=== PATIENT | female | born 1990 | race Caucasian/White ===

== ENCOUNTER 2017-06-28 12:28 | Emergency (ER) | payer OTHER ==
[~2017-06-28] VITALS: Ht 152.4 cm; Wt 63.5 kg
[~2017-06-28 12:28] MED LIST: ALBU90OI INH; AMOX250 PO; ARIP10; ATOM40; CEPH500 PO; CYCL10 PO; HYDACE5 PO; Norco 5-325 Ta1 EACH PO; PROM25 PO; Prilosec20 MG PO; Xanax0.5 MG PO; Zofran Odt4 MG SL
== END 2017-06-28 14:25 | disposition home or self-care (01) ==
LOC: ER 12:28
DX: S61.215A Laceration without foreign body of left ring finger without damage to nail, initial encounter (principal); Z88.8 Allergy status to other drugs, medicaments and biological substances; Z88.5 Allergy status to narcotic agent; F17.200 Nicotine dependence, unspecified, uncomplicated; W26.0XXA Contact with knife, initial encounter
CPT/HCPCS: 12001; 99283

== ENCOUNTER 2017-12-23 08:23 | Emergency (ER) | payer OTHER, BC ==
[~2017-12-23] VITALS: Ht 152.4 cm; Wt 52.2 kg
[2017-12-23] MEDS ORDERED: CEPH500 PO (09:38)
== END 2017-12-23 10:00 | disposition home or self-care (01) ==
LOC: ER 08:23
DX: S62.524A Nondisplaced fracture of distal phalanx of right thumb, initial encounter for closed fracture (principal); S60.111A Contusion of right thumb with damage to nail, initial encounter; F17.200 Nicotine dependence, unspecified, uncomplicated; Z88.5 Allergy status to narcotic agent; W23.0XXA Caught, crushed, jammed, or pinched between moving objects, initial encounter
CPT/HCPCS: 11740; 29130; 73140; 99283-25

== ENCOUNTER 2018-10-14 23:07 | Emergency (ER) | payer OTHER ==
[~2018-10-14] VITALS: Ht 152.4 cm; Wt 57.6 kg
[2018-10-15] MEDS ORDERED: Augmentin 875-1 EACH PO (04:09)
== END 2018-10-15 04:25 | disposition home or self-care (01) ==
LOC: ER 23:07
DX: K61.0 Anal abscess (principal); Z88.5 Allergy status to narcotic agent; F17.210 Nicotine dependence, cigarettes, uncomplicated
CPT/HCPCS: 46050; 72193; 96374-59; 96375-59; 99283-25; A9270; J2060; J2405; Q9967

== ENCOUNTER 2018-10-16 09:46 | Observation (INO) | payer OTHER ==
[~2018-10-16] VITALS: Ht 152.4 cm; Wt 57.6 kg
[~2018-10-16 09:46] MED LIST changes: +Augmentin 875-1 EACH PO
[2018-10-16 10:35] LABS: BASOPHILS ABSOLUTE AUTO 0.04 K/mm3 (0.00-0.23); BASOPHILS PERCENT AUTO 0 % (0-2); EOSINOPHILS ABSOLUTE AUTO 0.28 K/mm3 (0.00-0.68); EOSINOPHILS PERCENT AUTO 2 % (0-6); Hematocrit 42.2 % (33.0-51.0); IMMATURE GRAN ABSOLUTE AUTO 0.05 K/mm3 (0.00-0.10); IMMATURE GRAN PERCENT AUTO 0 % (0-1); LYMPHOCYTES ABSOLUTE AUTO 2.73 K/mm3 (0.84-5.20); LYMPHOCYTES PERCENT AUTO 18 % (21-46); MONOCYTES ABSOLUTE AUTO 1.22 K/mm3 (0.16-1.47); MONOCYTES PERCENT AUTO 8 % (4-13); Mean Corpuscular HGB 28.6 pg (26.0-34.0); Mean Corpuscular HGB Conc 33.2 g/dL (31.5-36.5); Mean Corpuscular Volume 86 fL (80-100); Mean Platelet Volume 10.4 fL (9.1-12.4); NEUTROPHILS ABSOLUTE AUTO 10.91 K/mm3 (1.96-9.15); NEUTROPHILS PERCENT AUTO 72 % (41-73); Platelet Count 350 K/mm3 (150-400); RDW Coefficient Variation 12.5 % (11.7-14.2); RDW Standard Deviation 39.6 fL (35.1-46.3); Red Blood Cell Count 4.89 M/mm3 (3.80-5.20); White Blood Cell Count 15.23 K/mm3 (4.00-11.30)
[2018-10-16 10:56] LABS: Anion Gap 9 mmol/L (6-16); Blood Urea Nitrogen 8 mg/dL (8-24); Bun/Creatinine Ratio 11.5 (12.0-20.0); CO2, Blood 23 mmol/L (21-32); Calcium, Blood 9.8 mg/dL (8.5-10.1); Chloride, Blood 106 mmol/L (98-108); Glomerular Filtration Rate >60 (60-); Glucose, Blood 100 mg/dL (70-99); Potassium, Blood 3.5 mmol/L (3.5-5.5); Sodium, Blood 138 mmol/L (136-145)
--- NOTE | 2018-10-16 14:46 | NUR ---
PATIENT ARRIVED FROM ER AND WAS RE-ROUTED TO DAY SURGERY PER DR MILLER
--- NOTE | 2018-10-16 15:13 | NUR ---
"DAY SURGERY RN | PATIENT TO OR"
--- NOTE | 2018-10-16 15:33 | NUR ---
10/16/18 1533 Lisa Vera PT ON SCHEDULED ANTIBIOTICS
--- NOTE | 2018-10-16 16:48 | NUR ---
TOLERATES PUDDING AND WATER . GIVEN ONE HALF PAIN PILL AT PT REQUEST . RATES PAIN 3/10 AND DENIES NAUSEA
--- NOTE | 2018-10-16 17:34 | NUR ---
DISCHARGED AT THIS TIME WITH ALL BELONINGS AND DISCHARGE INSTRUCTIONS, AFTER GOING OVER THEM WITH PATIENT AND FAMILY MEMBERS AND ANSWERING ALL QUESTIONS.
== END 2018-10-16 18:44 | disposition home or self-care (01) ==
LOC: ER 09:46 → ERHOLD 09:47 → MEDS 14:18
PROVIDERS: Emergency Medicine; ADMIT Surgery
PROC: 0D9P0ZZ Drainage of Rectum, Open Approach (ICD-10-PCS; principal; 2018-10-16 14:15)
DX: K61.1 Rectal abscess (principal); F17.200 Nicotine dependence, unspecified, uncomplicated; Z88.5 Allergy status to narcotic agent
CPT/HCPCS: 36415; 80048; 85025; 96365; 96375; 99284-25; G0378; J1100; J1170; J1885; J2250; J2405; J2704; J3010; J7030; J7120

== ENCOUNTER 2019-01-29 17:10 | Emergency (ER) | payer OTHER ==
[~2019-01-29] VITALS: Ht 162.6 cm; Wt 59.0 kg
[2019-01-29] MEDS ORDERED: CEPH500 PO (18:29)
== END 2019-01-29 18:39 | disposition home or self-care (01) ==
LOC: ER 17:10
DX: L03.011 Cellulitis of right finger (principal); Z88.5 Allergy status to narcotic agent; F17.210 Nicotine dependence, cigarettes, uncomplicated
CPT/HCPCS: 10060; 99283-25

== ENCOUNTER 2019-02-19 13:35 | Emergency (ER) | payer OTHER ==
[~2019-02-19] VITALS: Ht 152.4 cm; Wt 56.7 kg
[2019-02-19] MEDS ORDERED: Percocet 5-3251 EACH PO (15:20)
[2019-02-19] MEDS ORDERED: PROBIOTIC1 EAC1 PO (15:20)
[2019-02-19] MEDS ORDERED: Vibramycin100 MG PO (15:20)
== END 2019-02-19 15:30 | disposition home or self-care (01) ==
LOC: ER 13:35
DX: L02.415 Cutaneous abscess of right lower limb (principal); L03.115 Cellulitis of right lower limb; Z88.5 Allergy status to narcotic agent; F17.200 Nicotine dependence, unspecified, uncomplicated
CPT/HCPCS: 10060; 99282-25

== ENCOUNTER 2019-04-05 16:30 | Emergency (ER) | payer OTHER ==
[~2019-04-05] VITALS: Ht 152.4 cm; Wt 56.7 kg
[~2019-04-05 16:30] MED LIST changes: +PROBIOTIC1 EAC1 PO; +Percocet 5-3251 EACH PO; +Vibramycin100 MG PO
[2019-04-05 17:04] LABS: BASOPHILS ABSOLUTE AUTO 0.02 K/mm3 (0.00-0.23); BASOPHILS PERCENT AUTO 0 % (0-2); EOSINOPHILS ABSOLUTE AUTO 0.08 K/mm3 (0.00-0.68); EOSINOPHILS PERCENT AUTO 1 % (0-6); Hematocrit 42.4 % (33.0-51.0); Hemoglobin 13.8 g/dL (11.5-16.0); IMMATURE GRAN ABSOLUTE AUTO 0.01 K/mm3 (0.00-0.10); IMMATURE GRAN PERCENT AUTO 0 % (0-1); LYMPHOCYTES ABSOLUTE AUTO 1.46 K/mm3 (0.84-5.20); LYMPHOCYTES PERCENT AUTO 25 % (21-46); MONOCYTES ABSOLUTE AUTO 0.72 K/mm3 (0.16-1.47); MONOCYTES PERCENT AUTO 12 % (4-13); Mean Corpuscular HGB 28.2 pg (26.0-34.0); Mean Corpuscular HGB Conc 32.5 g/dL (31.5-36.5); Mean Corpuscular Volume 87 fL (80-100); Mean Platelet Volume 10.4 fL (9.1-12.4); NEUTROPHILS ABSOLUTE AUTO 3.54 K/mm3 (1.96-9.15); NEUTROPHILS PERCENT AUTO 61 % (41-73); Platelet Count 271 K/mm3 (150-400); RDW Coefficient Variation 12.4 % (11.7-14.2); RDW Standard Deviation 39.4 fL (35.1-46.3); White Blood Cell Count 5.83 K/mm3 (4.00-11.30)
[2019-04-05 17:37] LABS: Alanine Aminotransfer (ALT/SGP 22 U/L (12-78); Albumin, Blood 4.3 g/dL (3.4-5.0); Albumin/Globulin Ratio 1.1 (0.8-1.8); Alk Phos 67 U/L (50-136); Anion Gap 6 mmol/L (6-16); Aspartate Aminotrans (AST/SGOT 16 U/L (12-37); Bilirubin, Total 0.5 mg/dL (0.1-1.0); Blood Urea Nitrogen 9 mg/dL (8-24); Bun/Creatinine Ratio 13.6 (12.0-20.0); CO2, Blood 25 mmol/L (21-32); Calcium, Blood 9.2 mg/dL (8.5-10.1); Chloride, Blood 105 mmol/L (98-108); Creatinine, Blood 0.66 mg/dL (0.40-1.00); Globulin, Blood 3.8 g/dL (2.2-4.0); Glomerular Filtration Rate >60 (60-); Glucose, Blood 90 mg/dL (70-99); Potassium, Blood 3.3 mmol/L (3.5-5.5); Sodium, Blood 136 mmol/L (136-145); Total Protein, Blood 8.1 g/dL (6.4-8.2)
[2019-04-05 17:47] LABS: Source, Urine Clean Catch
[2019-04-05 17:50] LABS: Blood, Urine 2+ (Neg); Glucose Qualitative, Urine Neg (Neg); Ketones, Urine 4+ (Neg); Leukocyte Esterase, Urine 1+ (Neg); Nitrite, Urine Neg (Neg); Protein, Urine 1+ (Neg); Specific Gravity, Urine 1.025 (1.003-1.022); Urobilinogen, Urine 2+ (Normal)
[2019-04-05 17:58] LABS: Appearance, Urine Hazy (Clear); Bilirubin, Urine 1+ (Neg); Color, Urine Yellow (P-Yellow)
[2019-04-05 18:00] LABS: Red Blood Cells, Urine 0-2 /hpf (0-2); White Blood Cells, Urine 0-2 /hpf (0-5)
[2019-04-05 18:01] LABS: Bacteria Mod /hpf; Mucus Light (0-Heavy); Squamous Epithelial Cells Few /hpf (Few)
[2019-04-05] MEDS ORDERED: DICL75ER PO (18:57)
[2019-04-05] MEDS ORDERED: CEPH500 PO (18:57)
[2019-04-05] MEDS ORDERED: ONDA4ODT MM (18:57)
[2019-04-05] MEDS ORDERED: CYCL10 PO (19:42)
== END 2019-04-06 19:47 | disposition home or self-care (01) ==
LOC: ER 16:30
PROVIDERS: Emergency Medicine
DX: N39.0 Urinary tract infection, site not specified (principal); F17.200 Nicotine dependence, unspecified, uncomplicated; Z88.5 Allergy status to narcotic agent
CPT/HCPCS: 36415; 72040; 80053; 81001; 81025; 83690; 85025; 87086; 99284-25; J1885

== ENCOUNTER 2020-03-27 17:06 | Emergency (ER) | payer OTHER ==
[~2020-03-27] VITALS: Ht 152.4 cm; Wt 54.4 kg
[~2020-03-27 17:06] MED LIST changes: +DICL75ER PO; +ONDA4ODT MM
[2020-03-27 17:32] LABS: BASOPHILS ABSOLUTE AUTO 0.03 K/mm3 (0.00-0.23); BASOPHILS PERCENT AUTO 0 % (0-2); EOSINOPHILS ABSOLUTE AUTO 0.26 K/mm3 (0.00-0.68); EOSINOPHILS PERCENT AUTO 3 % (0-6); Hematocrit 44.2 % (33.0-51.0); Hemoglobin 14.1 g/dL (11.5-16.0); IMMATURE GRAN ABSOLUTE AUTO 0.02 K/mm3 (0.00-0.10); IMMATURE GRAN PERCENT AUTO 0 % (0-1); LYMPHOCYTES ABSOLUTE AUTO 1.91 K/mm3 (0.84-5.20); LYMPHOCYTES PERCENT AUTO 21 % (21-46); MONOCYTES ABSOLUTE AUTO 0.51 K/mm3 (0.16-1.47); MONOCYTES PERCENT AUTO 6 % (4-13); Mean Corpuscular HGB 27.9 pg (26.0-34.0); Mean Corpuscular HGB Conc 31.9 g/dL (31.5-36.5); Mean Corpuscular Volume 88 fL (80-100); Mean Platelet Volume 10.1 fL (9.1-12.4); NEUTROPHILS ABSOLUTE AUTO 6.45 K/mm3 (1.96-9.15); NEUTROPHILS PERCENT AUTO 70 % (41-73); Platelet Count 301 K/mm3 (150-400); RDW Coefficient Variation 11.9 % (11.7-14.2); RDW Standard Deviation 38.5 fL (35.1-46.3); Red Blood Cell Count 5.05 M/mm3 (3.80-5.20); White Blood Cell Count 9.18 K/mm3 (4.00-11.30)
[2020-03-27 17:51] LABS: Alanine Aminotransfer (ALT/SGP 18 U/L (12-78); Albumin, Blood 4.6 g/dL (3.4-5.0); Albumin/Globulin Ratio 1.3 (0.8-1.8); Alk Phos 79 U/L (50-136); Anion Gap 9 mmol/L (6-16); Aspartate Aminotrans (AST/SGOT 18 U/L (12-37); Bilirubin, Total 0.3 mg/dL (0.1-1.0); Blood Urea Nitrogen 14 mg/dL (8-24); Bun/Creatinine Ratio 22.5 (12.0-20.0); CO2, Blood 24 mmol/L (21-32); Calcium, Blood 9.7 mg/dL (8.5-10.1); Chloride, Blood 106 mmol/L (98-108); Creatinine, Blood 0.62 mg/dL (0.40-1.00); Globulin, Blood 3.6 g/dL (2.2-4.0); Glomerular Filtration Rate >60 (60-); Glucose, Blood 93 mg/dL (70-99); Potassium, Blood 3.5 mmol/L (3.5-5.5); Sodium, Blood 139 mmol/L (136-145); Total Protein, Blood 8.2 g/dL (6.4-8.2)
[2020-03-27] MEDS ORDERED: PSEU120ER PO (18:07)
[2020-03-27] MEDS ORDERED: Mucinex600 MG PO (18:07)
[2020-03-27] MEDS ORDERED: Flonase 0.05% N16 GM (18:07)
[2020-03-27] MEDS ORDERED: Toradol10 MG PO (18:12)
[2020-03-27] MEDS ORDERED: BENADRYL25 MG PO (18:12)
== END 2020-03-27 18:45 | disposition home or self-care (01) ==
LOC: ER 17:06
PROVIDERS: Physician Assistant
DX: J32.9 Chronic sinusitis, unspecified (principal); H83.8X3 Other specified diseases of inner ear, bilateral; F17.200 Nicotine dependence, unspecified, uncomplicated; Z88.5 Allergy status to narcotic agent; Z79.899 Other long term (current) drug therapy
CPT/HCPCS: 36415; 80053; 85025; 96374; 96375; 99283-25; J0780; J1200; J1885; J2405

== ENCOUNTER 2020-04-07 19:47 | Emergency (ER) | payer OTHER ==
[~2020-04-07] VITALS: Ht 152.4 cm; Wt 53.1 kg
[~2020-04-07 19:47] MED LIST changes: +BENADRYL25 MG PO; +Flonase 0.05% N16 GM; +Mucinex600 MG PO; +PSEU120ER PO; +Toradol10 MG PO
[2020-04-07] MEDS ORDERED: AMOCLA875 PO (20:32)
== END 2020-04-07 20:45 | disposition home or self-care (01) ==
LOC: ER 19:47
DX: S61.252A Open bite of right middle finger without damage to nail, initial encounter (principal); F17.200 Nicotine dependence, unspecified, uncomplicated; Z88.5 Allergy status to narcotic agent; Z23 Encounter for immunization; Z79.899 Other long term (current) drug therapy; W55.01XA Bitten by cat, initial encounter
CPT/HCPCS: 73140; 90471; 90714; 99283-25

== ENCOUNTER 2020-11-05 13:56 | Emergency (ER) | payer OTHER ==
[~2020-11-05] VITALS: Ht 152.4 cm; Wt 54.4 kg
[~2020-11-05 13:56] MED LIST changes: +AMOCLA875 PO
== END 2020-11-05 16:15 | disposition left against medical advice (07) ==
LOC: ER 13:56
DX: K64.9 Unspecified hemorrhoids (principal)
CPT/HCPCS: 99282

== ENCOUNTER 2020-11-07 05:09 | Emergency (ER) | payer OTHER ==
[~2020-11-07] VITALS: Ht 152.4 cm; Wt 54.4 kg
[2020-11-07 07:29] LABS: BASOPHILS ABSOLUTE AUTO 0.03 K/mm3 (0.00-0.23); BASOPHILS PERCENT AUTO 0 % (0-2); EOSINOPHILS ABSOLUTE AUTO 0.25 K/mm3 (0.00-0.68); EOSINOPHILS PERCENT AUTO 3 % (0-6); Hemoglobin 11.7 g/dL (11.5-16.0); IMMATURE GRAN ABSOLUTE AUTO 0.01 K/mm3 (0.00-0.10); IMMATURE GRAN PERCENT AUTO 0 % (0-1); LYMPHOCYTES PERCENT AUTO 33 % (21-46); MONOCYTES PERCENT AUTO 10 % (4-13); Mean Corpuscular HGB 28.3 pg (26.0-34.0); Mean Corpuscular HGB Conc 32.5 g/dL (31.5-36.5); Mean Corpuscular Volume 87 fL (80-100); NEUTROPHILS ABSOLUTE AUTO 3.92 K/mm3 (1.96-9.15); NEUTROPHILS PERCENT AUTO 54 % (41-73); Platelet Count 256 K/mm3 (150-400); RDW Coefficient Variation 12.4 % (11.7-14.2); Red Blood Cell Count 4.13 M/mm3 (3.80-5.20); White Blood Cell Count 7.31 K/mm3 (4.00-11.30)
[2020-11-07 07:40] LABS: Anion Gap 3 mmol/L (6-16); Blood Urea Nitrogen 16 mg/dL (8-24); Bun/Creatinine Ratio 20.5 (12.0-20.0); CO2, Blood 28 mmol/L (21-32); Calcium, Blood 8.7 mg/dL (8.5-10.1); Chloride, Blood 109 mmol/L (98-108); Creatinine, Blood 0.78 mg/dL (0.40-1.00); Glomerular Filtration Rate >60 (60-); Glucose, Blood 99 mg/dL (70-99); Potassium, Blood 4.1 mmol/L (3.5-5.5); Sodium, Blood 140 mmol/L (136-145)
[2020-11-07] MEDS ORDERED: DOC250 PO (09:09)
== END 2020-11-07 09:17 | disposition home or self-care (01) ==
LOC: ER 05:09
PROVIDERS: Emergency Medicine
DX: K64.4 Residual hemorrhoidal skin tags (principal); Z88.5 Allergy status to narcotic agent; Z87.891 Personal history of nicotine dependence
CPT/HCPCS: 36415; 72193; 80048; 85025; 96374-59; 99283-25; J3010; Q9967

== ENCOUNTER 2021-08-22 12:14 | Emergency (ER) | payer OTHER ==
[~2021-08-22] VITALS: Ht 152.4 cm; Wt 52.2 kg
[~2021-08-22 12:14] MED LIST changes: +DOC250 PO
[2021-08-22] MEDS ORDERED: TRANSDERM-SCOP1 EAC1 TD (12:36)
== END 2021-08-22 12:36 | disposition left against medical advice (07) ==
LOC: ER 12:14
DX: S09.22XA Traumatic rupture of left ear drum, initial encounter (principal); X58.XXXA Exposure to other specified factors, initial encounter
CPT/HCPCS: 99282

== ENCOUNTER → 2023-08-15 | Outpatient (CLI) | payer OTHER ==
[~2023-08-15] MED LIST changes: +TRANSDERM-SCOP1 EAC1 TD; +Zofran4 MG PO
[2023-08-15 09:27] LABS: BASOPHILS ABSOLUTE AUTO 0.02 K/mm3 (0.00-0.23); BASOPHILS PERCENT AUTO 0 % (0-2); EOSINOPHILS ABSOLUTE AUTO 0.16 K/mm3 (0.00-0.68); EOSINOPHILS PERCENT AUTO 3 % (0-6); Hematocrit 40.3 % (33.0-51.0); Hemoglobin 13.7 g/dL (11.5-16.0); IMMATURE GRAN ABSOLUTE AUTO 0.01 K/mm3 (0.00-0.10); IMMATURE GRAN PERCENT AUTO 0 % (0-1); LYMPHOCYTES ABSOLUTE AUTO 1.92 K/mm3 (0.84-5.20); LYMPHOCYTES PERCENT AUTO 35 % (21-46); MONOCYTES PERCENT AUTO 9 % (4-13); Mean Corpuscular HGB 28.2 pg (26.0-34.0); Mean Corpuscular Volume 83 fL (80-100); Mean Platelet Volume 10.2 fL (9.1-12.4); NEUTROPHILS ABSOLUTE AUTO 2.91 K/mm3 (1.96-9.15); NEUTROPHILS PERCENT AUTO 53 % (41-73); Platelet Count 277 K/mm3 (150-400); RDW Coefficient Variation 12.2 % (11.7-14.2); RDW Standard Deviation 37.4 fL (35.1-46.3); Red Blood Cell Count 4.85 M/mm3 (3.80-5.20); White Blood Cell Count 5.52 K/mm3 (4.00-11.30)
[2023-08-15 09:38] LABS: Albumin/Globulin Ratio 1.1 (0.8-1.8); Bilirubin, Total 0.4 mg/dL (0.1-1.0); Bun/Creatinine Ratio 14.3 (12.0-20.0); Calcium, Blood 8.9 mg/dL (8.5-10.1); Creatinine, Blood 0.77 mg/dL (0.40-1.00); Globulin, Blood 3.6 g/dL (2.2-4.0); Potassium, Blood 3.1 mmol/L (3.5-5.5); Total Protein, Blood 7.6 g/dL (6.4-8.2)
== END | disposition home or self-care (01) ==
LOC: LAB 09:22 → LAB SHORT 09:22
PROVIDERS: Family Medicine
DX: K52.9 Noninfective gastroenteritis and colitis, unspecified (principal)
CPT/HCPCS: 80053; 85025

== ENCOUNTER 2025-03-31 05:32 | Emergency (ER) | payer OTHER ==
[~2025-03-31] VITALS: Ht 152.4 cm; Wt 59.0 kg
[2025-03-31] MEDS ORDERED: Ketorolac Tromethamine 30mg Vial IM ONE (06:25)
[2025-03-31] MEDS ORDERED: HYDROcodone 5-APAP 325 TAB PO ONE ×2 (06:30→08:35)
[2025-03-31] MEDS ORDERED: Methyl Salicylate/Menth/Camph 57 GM TUBE TOP ONE (08:35)
[2025-03-31] MEDS ORDERED: Ondansetron 4 MG SoluTab SL ONE (08:55)
[2025-03-31 09:07] VITALS: BP 120/83
[2025-03-31] MEDS ORDERED: Robaxin750 MG PO (09:41)
== END 2025-03-31 09:44 | disposition home or self-care (01) ==
LOC: ER 05:32
DX: S46.012A Strain of muscle(s) and tendon(s) of the rotator cuff of left shoulder, initial encounter (principal); W18.30XA Fall on same level, unspecified, initial encounter; Z88.5 Allergy status to narcotic agent; Z87.891 Personal history of nicotine dependence
CPT/HCPCS: 73030; 96374; 99283-25; A9270; J1885